=== PATIENT | male | born 1970 | race Caucasian/White ===

== ENCOUNTER → 2020-05-20 | Outpatient (CLI) | payer MEDICAID ==
[~2020-05-20] MED LIST: GABA600T7 PO; MELO15TA24 PO
[2020-05-20 10:51] LABS: MICROSCOPIC NOT IND
[2020-05-20 10:57] LABS: BASOPHILS % (AUTO) 2 % (0-1); EOSINOPHILS % (AUTO) 4 % (1-7); LYMPHOCYTES % (AUTO) 20 % (22-44); MD NO; MEAN CORPUSCULAR HEMOGLOBIN 34.9 pg (27.5-34.5); MEAN CORPUSCULAR HGB CONC 34.1 g/dL (33.2-36.2); MEAN PLATELET VOLUME 8.4 fL (7.4-10.4); MONOCYTES % (AUTO) 11 % (2-9); NEUTROPHILS % (AUTO) 64 % (42-75); PLATELET COUNT 206 x10^3/uL (130-400); RED BLOOD COUNT 4.77 x10^6/uL (4.38-5.82); RED CELL DISTRIBUTION WIDTH 13.8 % (9.4-14.8)
[2020-05-20 11:04] LABS: INTERNATIONAL NORMALIZED RATIO 0.93 (0.93-1.1)
[2020-05-20 11:05] LABS: ANION GAP 4 mmol/L (5-15); CALCIUM 8.9 mg/dL (8.5-10.1); CHLORIDE 109 mmol/L (98-107); CREATININE 0.88 mg/dL (0.7-1.3)
== END | disposition home or self-care (01) ==
LOC: STAR 09:14
PROVIDERS: ATTEND Neurological Surgery
DX: Z01.810 Encounter for preprocedural cardiovascular examination (principal); Z01.811 Encounter for preprocedural respiratory examination; M48.061 Spinal stenosis, lumbar region without neurogenic claudication; M43.16 Spondylolisthesis, lumbar region; R79.1 Abnormal coagulation profile; R82.90 Unspecified abnormal findings in urine; R94.31 Abnormal electrocardiogram [ECG] [EKG]; M47.26 Other spondylosis with radiculopathy, lumbar region; Z20.822 Contact with and (suspected) exposure to COVID-19
CPT/HCPCS: 71046; 80048; 81003; 85025; 85610; 85730; 87635; 93005

== ENCOUNTER 2020-05-24 05:18 | Inpatient (IN) | payer MEDICAID ==
[~2020-05-24] VITALS: Ht 188 cm; Wt 99.0 kg
[2020-05-24] MEDS ORDERED: BUPIVACAINE/PF 0.5% ONE (06:20)
[2020-05-24] MEDS ORDERED: EPINEPHRINE 1 MG/ML, 1ML ONE (06:20)
[2020-05-24] MEDS ORDERED: BACITRACIN 50,000 UNIT ONE (06:20)
[2020-05-24] MEDS ORDERED: VANCOMYCIN 1,000 MG ONE (06:20)
[2020-05-24] MEDS ORDERED: TIZANIDINE PO (06:24)
[2020-05-24] MEDS ORDERED: LACTATED RINGERS 1,000 ML IV SCH (06:30)
[2020-05-24] MEDS ORDERED: CHLORHEXIDINE 15 ML UDC MM ONE (06:30)
[2020-05-24] MEDS ORDERED: ONDANSETRON 2MG/ML, 2ML IVPush PRN ×2 (07:00→09:00)
[2020-05-24] MEDS ORDERED: LABETALOL 5MG/ML, 20ML IV PRN (07:00)
[2020-05-24] MEDS ORDERED: hydrALAzine 20 MG/ML, 1ML IV PRN (07:00)
[2020-05-24] MEDS ORDERED: ACETAMINOPHEN 325 MG TABLET PO PRN (07:00)
[2020-05-24] MEDS ORDERED: MEPERIDINE/PF 25MG/0.5ML IVPush PRN (07:00)
[2020-05-24] MEDS ORDERED: OXYcodone 5 MG/5 ML ORAL.SOL UDC PO PRN (07:00)
[2020-05-24] MEDS ORDERED: morphine SULFATE 10 MG/ML, 1ML IVPush PRN (07:00)
[2020-05-24] MEDS ORDERED: ROCURONIUM 10 MG/ML,10ML ONE (07:04)
[2020-05-24] MEDS ORDERED: PHENYLEPHRINE 10 MG/ML ONE (07:04)
[2020-05-24] MEDS ORDERED: PROPOFOL 10 MG/ML, 20ML ONE (07:04)
[2020-05-24] MEDS ORDERED: CEFAZOLIN 1,000 MG ONE (07:04)
[2020-05-24] MEDS ORDERED: GLYCOPYRROLATE 0.2MG/1ML, 5ML ONE (07:04)
[2020-05-24] MEDS ORDERED: SUGAMMADEX 200 MG/2 ML IVPush ONE (07:04)
[2020-05-24] MEDS ORDERED: MIDAZOLAM 1 MG/ML, 2ML ONE (07:04)
[2020-05-24] MEDS ORDERED: PROPOFOL 10 MG/ML, 50ML ONE (07:04)
[2020-05-24] MEDS ORDERED: FENTANYL PF 100 MCG/2ML ONE (08:46)
[2020-05-24] MEDS: FENTANYL PF 100 MCG/2ML IV PRN ×2 (08:48→09:04)
[2020-05-24] MEDS ORDERED: OXYcodone 5 MG/5 ML ORAL.SOL UDC ONE (08:54)
[2020-05-24] MEDS ORDERED: PROMETHAZINE 25 MG/ML, 1ML IM PRN (09:00)
[2020-05-24] MEDS ORDERED: D5%-0.9% NACL+KCL 20MEQ 1,000 ML IV SCH (09:00)
[2020-05-24] MEDS ORDERED: BISACODYL 10 MG SUPP PR PRN (09:00)
[2020-05-24] MEDS ORDERED: PHARMACY MAY ADJ FOR RENAL FX MC PRN (09:00)
[2020-05-24] MEDS ORDERED: MAGNESIUM HYDROXIDE 8%, 30ML UDC PO PRN (09:00)
[2020-05-24] MEDS ORDERED: SENNA/DOCUSATE TABLET PO PRN (09:00)
[2020-05-24] MEDS ORDERED: TEMPLATE NON-FORMULARY MED. (Gabapentin** 300 MG) PO SCH (09:00)
[2020-05-24] MEDS: SODIUM CHLORIDE FLUSH 10ML SYR IVF SCH ×2 (09:00→20:18)
[2020-05-24] MEDS ORDERED: DIPHENHYDRAMINE 50 MG/ML, 1ML IVPush PRN (09:00)
[2020-05-24] MEDS ORDERED: HYDROmorphone 1 MG/ML, 1ML INJ ONE (09:06)
[2020-05-24] MEDS: HYDROmorphone 1 MG/ML, 1ML INJ IVPush PRN ×5 (09:13→16:47)
[2020-05-24] MEDS ORDERED: METHOCARBAMOL 1,000 MG in DEXTROSE 5% 100 ML IV ONE (09:30)
[2020-05-24] MEDS ORDERED: GABAPENTIN 300 MG CAPSULE PO PRN (12:30)
[2020-05-24 13:00] VITALS: BP 160/96
[2020-05-24] MEDS: D5%-0.9% NACL+KCL 20MEQ 1,000 ML IV SCH ×2 (13:25→21:29)
[2020-05-24] MEDS: HYDROcodone/APAP 5/325 TABLET PO PRN ×2 (13:27→17:57)
[2020-05-24] MEDS: CEFAZOLIN PMX 1GM/50ML 50 ML IVPB SCH ×2 (15:11→22:51)
[2020-05-24 18:05] VITALS: BP 191/109
[2020-05-24 18:49] VITALS: BP 162/91
[2020-05-24] MEDS: METHOCARBAMOL 750 MG TABLET PO PRN (19:31)
[2020-05-24] MEDS: HYDROcodone/APAP 10/325 MG TABLET PO PRN (22:06)
[2020-05-25 00:11] VITALS: BP 153/88
[2020-05-25] MEDS: HYDROcodone/APAP 10/325 MG TABLET PO PRN ×5 (02:21→22:28)
[2020-05-25 03:53] VITALS: BP 137/86
[2020-05-25 06:25] VITALS: BP 168/93
[2020-05-25] MEDS: KETOROLAC 30 MG/1 ML IM SCH ×3 (08:49→21:06)
[2020-05-25] MEDS: D5%-0.9% NACL+KCL 20MEQ 1,000 ML IV SCH ×2 (08:49→19:30)
[2020-05-25] MEDS: SODIUM CHLORIDE FLUSH 10ML SYR IVF SCH ×2 (08:49→22:29)
[2020-05-25 09:52] LABS: BASOPHILS % (AUTO) 1 % (0-1); EOSINOPHILS % (AUTO) 3 % (1-7); LYMPHOCYTES % (AUTO) 15 % (22-44); MEAN CORPUSCULAR HEMOGLOBIN 34.6 pg (27.5-34.5); MONOCYTES % (AUTO) 9 % (2-9); NEUTROPHILS % (AUTO) 74 % (42-75); PLATELET COUNT 180 x10^3/uL (130-400); RED BLOOD COUNT 4.63 x10^6/uL (4.38-5.82); RED CELL DISTRIBUTION WIDTH 13.6 % (9.4-14.8)
[2020-05-25 09:54] LABS: CALCIUM 8.5 mg/dL (8.5-10.1); CREATININE 0.83 mg/dL (0.7-1.3)
[2020-05-25 10:04] LABS: ANION GAP 7 mmol/L (5-15); CHLORIDE 108 mmol/L (98-107)
[2020-05-25 10:05] LABS: MD NO
[2020-05-25] MEDS: METHOCARBAMOL 750 MG TABLET PO PRN ×2 (13:31→21:35)
[2020-05-25 15:35] VITALS: BP 161/96
[2020-05-25 19:08] VITALS: BP 160/85
[2020-05-25] MEDS: HYDROmorphone 1 MG/ML, 1ML INJ IVPush PRN (21:07)
[2020-05-26 01:35] VITALS: BP 156/90
[2020-05-26] MEDS: HYDROcodone/APAP 10/325 MG TABLET PO PRN ×5 (02:53→23:57)
[2020-05-26] MEDS: D5%-0.9% NACL+KCL 20MEQ 1,000 ML IV SCH ×2 (05:30→19:37)
[2020-05-26] MEDS: METHOCARBAMOL 750 MG TABLET PO PRN (05:36)
[2020-05-26] MEDS ORDERED: VANCOMYCIN 1,000 MG ONE (06:11)
[2020-05-26] MEDS ORDERED: BACITRACIN 50,000 UNIT ONE (06:11)
[2020-05-26] MEDS ORDERED: BUPIVACAINE/PF 0.5% ONE (06:11)
[2020-05-26] MEDS ORDERED: EPINEPHRINE 1 MG/ML, 1ML ONE (06:11)
[2020-05-26 06:53] VITALS: BP 173/108
[2020-05-26] MEDS: SODIUM CHLORIDE FLUSH 10ML SYR IVF SCH ×2 (08:38→19:37)
[2020-05-26] MEDS ORDERED: CHLORHEXIDINE 15 ML UDC ONE (13:03)
[2020-05-26] MEDS ORDERED: CHLORHEXIDINE 15 ML UDC MM ONE (13:30)
[2020-05-26] MEDS ORDERED: MIDAZOLAM 1 MG/ML, 2ML ONE (13:45)
[2020-05-26] MEDS ORDERED: FENTANYL PF 250 MCG/5ML ONE (13:46)
[2020-05-26] MEDS ORDERED: BACITRACIN 50,000 UNIT IRRIG ONE (15:18)
[2020-05-26] MEDS ORDERED: VANCOMYCIN 1,000 MG IM ONE (15:19)
[2020-05-26] MEDS ORDERED: EPINEPHRINE 1 MG/ML, 1ML INFIL ONE (15:19)
[2020-05-26] MEDS ORDERED: DEXAMETHASONE 4 MG/ML, 1ML ONE (15:38)
[2020-05-26] MEDS ORDERED: NEOSTIGMINE 1 MG/ML, 10ML ONE (15:38)
[2020-05-26] MEDS ORDERED: ONDANSETRON 2MG/ML, 2ML ONE (15:38)
[2020-05-26] MEDS ORDERED: PROPOFOL 10 MG/ML, 20ML ONE (15:38)
[2020-05-26] MEDS ORDERED: ROCURONIUM 10MG/ML,5ML ONE (15:38)
[2020-05-26] MEDS ORDERED: CEFAZOLIN 1,000 MG ONE (15:38)
[2020-05-26] MEDS ORDERED: GLYCOPYRROLATE 0.2MG/1ML, 5ML ONE (15:38)
[2020-05-26] MEDS ORDERED: HYDROmorphone 1 MG/ML, 1ML INJ IVPush PRN (16:00)
[2020-05-26] MEDS ORDERED: MEPERIDINE/PF 25MG/0.5ML IVPush PRN (16:00)
[2020-05-26] MEDS ORDERED: LORazepam 2 MG/ML, 1ML IVPush PRN (16:00)
[2020-05-26] MEDS ORDERED: OXYcodone 5 MG/5 ML ORAL.SOL UDC PO PRN (16:00)
[2020-05-26] MEDS ORDERED: METHOCARBAMOL 1,000 MG in DEXTROSE 5% 100 ML IV PRN (16:00)
[2020-05-26] MEDS ORDERED: ACETAMINOPHEN 325 MG TABLET PO PRN (16:00)
[2020-05-26] MEDS ORDERED: ALBUTEROL SULFATE 2.5 MG/3 ML NPPB PRN (16:00)
[2020-05-26] MEDS ORDERED: LABETALOL 5MG/ML, 20ML IV PRN (16:00)
[2020-05-26] MEDS ORDERED: PROMETHAZINE 25 MG/ML, 1ML IVPush PRN (16:00)
[2020-05-26] MEDS ORDERED: hydrALAzine 20 MG/ML, 1ML IV PRN (16:00)
[2020-05-26] MEDS ORDERED: HYDROmorphone 1 MG/ML, 1ML INJ ONE ×2 (16:57→17:58)
[2020-05-26] MEDS ORDERED: FENTANYL PF 100 MCG/2ML ONE (16:57)
[2020-05-26] MEDS ORDERED: OXYcodone 5 MG/5 ML ORAL.SOL UDC ONE (16:57)
[2020-05-26] MEDS ORDERED: DIPHENHYDRAMINE 50 MG/ML, 1ML IVPush PRN (17:00)
[2020-05-26] MEDS ORDERED: PHARMACY MAY ADJ FOR RENAL FX MC PRN (17:00)
[2020-05-26] MEDS ORDERED: HYDROcodone/APAP 5/325 TABLET PO PRN (17:00)
[2020-05-26] MEDS ORDERED: MAGNESIUM HYDROXIDE 8%, 30ML UDC PO PRN (17:00)
[2020-05-26] MEDS ORDERED: PROMETHAZINE 25 MG/ML, 1ML IM PRN (17:00)
[2020-05-26] MEDS: FENTANYL PF 100 MCG/2ML IV PRN ×2 (17:00→17:07)
[2020-05-26] MEDS ORDERED: ONDANSETRON 2MG/ML, 2ML IVPush PRN (17:00)
[2020-05-26] MEDS ORDERED: SENNA/DOCUSATE TABLET PO PRN (17:00)
[2020-05-26] MEDS ORDERED: BISACODYL 10 MG SUPP PR PRN (17:00)
[2020-05-26] MEDS ORDERED: METHOCARBAMOL 1,000 MG in DEXTROSE 5% 100 ML IV ONE (17:00)
[2020-05-26] MEDS: HYDROmorphone 1 MG/ML, 1ML INJ IVPush PRN ×5 (17:28→21:12)
[2020-05-26] MEDS ORDERED: hydrALAzine 20 MG/ML, 1ML ONE (18:13)
[2020-05-26] MEDS ORDERED: hydrALAzine 20 MG/ML, 1ML IV ONE (18:30)
[2020-05-26 20:00] VITALS: BP 138/80
[2020-05-26] MEDS: CEFAZOLIN PMX 1GM/50ML 50 ML IVPB SCH (22:47)
[2020-05-27 00:04] VITALS: BP 122/81
[2020-05-27] MEDS: METHOCARBAMOL 750 MG TABLET PO PRN ×3 (01:29→21:09)
[2020-05-27] MEDS: D5%-0.9% NACL+KCL 20MEQ 1,000 ML IV SCH ×3 (03:00→23:00)
[2020-05-27] MEDS: HYDROcodone/APAP 10/325 MG TABLET PO PRN ×4 (04:10→21:10)
[2020-05-27 04:25] VITALS: BP 143/84
[2020-05-27] MEDS: HYDROmorphone 1 MG/ML, 1ML INJ IVPush PRN ×2 (04:48→07:47)
[2020-05-27] MEDS: ENOXAPARIN 40 MG/0.4 ML SQ SCH (06:00)
[2020-05-27] MEDS: CEFAZOLIN PMX 1GM/50ML 50 ML IVPB SCH (06:00)
[2020-05-27 07:20] VITALS: BP 146/80
[2020-05-27] MEDS: SODIUM CHLORIDE FLUSH 10ML SYR IVF SCH ×2 (07:48→21:11)
[2020-05-27 12:44] VITALS: BP 150/83
[2020-05-27 20:30] VITALS: BP 148/84
[2020-05-28 01:27] VITALS: BP 165/90
[2020-05-28] MEDS: HYDROmorphone 1 MG/ML, 1ML INJ IVPush PRN ×3 (01:34→08:11)
[2020-05-28] MEDS: HYDROcodone/APAP 10/325 MG TABLET PO PRN ×4 (01:35→13:20)
[2020-05-28] MEDS: METHOCARBAMOL 750 MG TABLET PO PRN ×2 (05:31→13:20)
[2020-05-28] MEDS: ENOXAPARIN 40 MG/0.4 ML SQ SCH (05:31)
[2020-05-28 07:26] VITALS: BP 143/87
[2020-05-28] MEDS: D5%-0.9% NACL+KCL 20MEQ 1,000 ML IV SCH (07:32)
[2020-05-28] MEDS: SODIUM CHLORIDE FLUSH 10ML SYR IVF SCH (08:11)
[2020-05-28] MEDS ORDERED: METH-640 PO (09:24)
[2020-05-28] MEDS ORDERED: HYDR1TAB53 PO (09:24)
[2020-05-28 13:25] VITALS: BP 134/84
== END 2020-05-28 14:00 | disposition home or self-care (01) | DRG 455 ==
LOC: ORIP 05:18 → 4NE 11:02 → DCLOUNGE 05-28 13:48
PROVIDERS: ADMIT Neurological Surgery; ATTEND Neurological Surgery
PROC: 0SB20ZZ Excision of Lumbar Vertebral Disc, Open Approach (ICD-10-PCS; 2020-05-24)
PROC: 0SG00A0 Fusion of Lumbar Vertebral Joint with Interbody Fusion Device, Anterior Approach, Anterior Column, Open Approach (ICD-10-PCS; principal; 2020-05-24 07:00)
PROC: 0SG0071 Fusion of Lumbar Vertebral Joint with Autologous Tissue Substitute, Posterior Approach, Posterior Column, Open Approach (ICD-10-PCS; 2020-05-26)
PROC: 01NB0ZZ Release Lumbar Nerve, Open Approach (ICD-10-PCS; 2020-05-26)
DX: M51.16 Intervertebral disc disorders with radiculopathy, lumbar region (principal); M43.16 Spondylolisthesis, lumbar region; M48.062 Spinal stenosis, lumbar region with neurogenic claudication; M47.26 Other spondylosis with radiculopathy, lumbar region; M25.78 Osteophyte, vertebrae; Z79.899 Other long term (current) drug therapy
CPT/HCPCS: 36415; 72100; S0020; 72131; 80048; 85025; C1713; G0378; J0171; J0690; J1100; J1170; J1650; J1885; J2250; J2405; J2704; J2710; J3010; J3370; C1763; C1769; C1889; J0360; J2370; J2800; J3480; J7120